=== PATIENT | female | born 1945 | race Caucasian/White ===

== ENCOUNTER 2017-08-12 15:22 | Emergency (ER) | payer MEDICARE, OTHER ==
[2017-08-12 15:35] VITALS: BP 171/81
--- NOTE | 2017-08-12 15:45 | UC ---
Back Pain HPI - HPI Summary HPI Summary: slipped and fell 1 hour prior to arrival on a wet floor in the kitchen she hit the right side of her back has pain in left side of his back and left hip - History of Current Complaint Chief Complaint: UCBackPain Stated Complaint: BACK INJURY FROM A FALL Time Seen by Provider: 08/12/17 15:35 Hx Obtained From: Patient ?: No Onset/Duration: Sudden Onset, Still Present - happened about 1 hour ago Timing: Constant Severity Initially: Moderate Severity Currently: Moderate Pain Intensity: 5 Pain Scale Used: 0-10 Numeric Back Pain: Is Discrete @ Character: Aching, Throbbing Aggravating Factor(s): Movement Alleviating Factor(s): Rest Associated Signs And Symptoms: Positive: Redness, Bruising - Allergies/Home Medications Allergies/Adverse Reactions: Allergies Allergy/AdvReac Type Severity Reaction Status Date / Time Acetaminophen [From Percocet] AdvReac Severe Headache Verified 08/12/17 15:35 Oxycodone [From Percocet] AdvReac Severe Headache Verified 08/12/17 15:35 Codeine AdvReac Intermediate GI Upset Verified 08/12/17 15:35 PMH/Surg Hx/FS Hx/Imm Hx Previously Healthy: No Cardiovascular History: Hypertension Psychological History: Other Other Psychological History: Insomnia - Surgical History Surgical History: Yes Surgery Procedure, Year, and Place: Complete Hysterectomy 1988, gall bladder removal, tonsils out as a child. - Family History Known Family History: Positive: None - Social History Occupation: Retired Alcohol Use: Daily Alcohol Amount: a glass of wine Substance Use Type: None Smoking Status (MU): Never Smoked Tobacco Review of Systems Constitutional: Negative Skin: Other - Abrasion on right arm and elbow Eyes: Negative ENT: Negative Respiratory: Negative Cardiovascular: Negative Gastrointestinal: Negative Genitourinary: Negative Motor: Other - general achey and stiff Neurovascular: Negative Musculoskeletal: Arthralgia - right hip, right posterior ribs Neurological: Negative Psychological: Negative Is Patient Immunocompromised?: No All Other Systems Reviewed And Are Negative: Yes Physical Exam Triage Information Reviewed: Yes Vital Signs: Initial Vital Signs Temp 98 F 08/12/17 15:28 Pulse 67 08/12/17 15:28 Resp 18 08/12/17 15:28 BP 171/81 08/12/17 15:28 Pulse Ox 100 08/12/17 15:28 Eye Exam: Normal ENT Exam: Normal Dental Exam: Normal Neck exam: Normal Neck: Positive: 1 Respiratory Exam: Normal Cardiovascular Exam: Normal Abdominal Exam: Normal Musculoskeletal Exam: Normal Neurological Exam: Normal Psychological Exam: Normal Skin Exam: Normal Diagnostics - Laboratory Diagnostic Studies Completed/Ordered: UA WNL - Radiology No standard instances Xray Interpretation: No Acute Changes Radiology Interpretation Completed By: Radiologist Back Pain Course/Dx - Course Course Of Treatment: Ibuprofen muscle relaxar, lidocaine topical follow with Dr. Gonzalez - Differential Dx/Diagnosis Differential Diagnosis/HQI/PQRI: Arthritis, Fracture, Strain, Sprain Provider Diagnoses: COntusion right mid back, abrasion/contusion right arm Discharge - Discharge Plan Condition: Stable Disposition: HOME Prescriptions: Cyclobenzaprine TAB* [Flexeril 10 MG TAB*] 10 mg PO TID PRN #15 tab PRN Reason: muscle spasm Ibuprofen TAB* [Motrin TAB* 600 MG] 600 mg PO Q6H PRN #30 tab PRN Reason: pain Lidocaine PATCH 5%* [Lidoderm 5% Patch*] 1 patch TRANSDERM DAILY #15 patch Patient Education Materials: Contusion in Adults (ED), Hypertension (ED), Muscle Spasm (ED), Back Pain (ED) Referrals: Joel Gonzalez MD [Primary Care Provider] - If Needed
[2017-08-12] MEDS ORDERED: Ibuprofen TAB* 400 MG PO ONE (16:01)
--- NOTE | 2017-08-12 16:31 | RAD ---
INDICATION: Right knee pain after a fall COMPARISON: None. TECHNIQUE: 5 views of the right ribs were obtained. FINDINGS: No fracture or significant focal osseous abnormality is seen. No pneumothorax is apparent. Limited views demonstrate grossly clear lungs. Chronic appearing S-shaped curvature of the thoracolumbar spine is incidentally noted. IMPRESSION: No radiographically apparent displaced rib fracture or pneumothorax. If the patient's symptoms persist, follow-up imaging is recommended.
--- NOTE | 2017-08-12 16:34 | RAD ---
INDICATION: Right hip pain after a fall COMPARISON: CT abdomen pelvis dated January 13, 2016 TECHNIQUE: 3 views of the right hip were obtained. FINDINGS: The visualized bones of the right hip are well-corticated and properly aligned. The joint spaces are normal. There is no radiographic evidence of acute fracture or dislocation. IMPRESSION: Normal radiograph of the right hip. If the patient's symptoms persist follow-up imaging is recommended.
== END 2017-08-12 17:09 | disposition home or self-care (01) ==
LOC: UCEAST 15:22
DX: S20.221A Contusion of right back wall of thorax, initial encounter (principal); Z88.6 Allergy status to analgesic agent; I10 Essential (primary) hypertension; W01.0XXA Fall on same level from slipping, tripping and stumbling without subsequent striking against object, initial encounter; Y92.000 Kitchen of unspecified non-institutional (private) residence as the place of occurrence of the external cause
CPT/HCPCS: 81003; 99212; A9270-GY; G0463